=== PATIENT | female | born 1985 | race American Indian/Alaskan Native ===

== ENCOUNTER 2018-08-30 06:37 | Emergency (ER) | payer SELFPAY ==
[2018-08-30 07:02] LABS: Basophils % (Auto) 0.6 % (0.0-1.8); Eosinophils % (Auto) 0.7 % (0.0-4.3); Hematocrit 42.6 % (30.3-42.9); Hemoglobin 14.7 gm/dl (10.1-14.3); Lymphocytes # (Auto) 1.4 K/mm3 (1.2-5.4); Lymphocytes % (Auto) 28.8 % (13.4-35.0); Mean Corpuscular HGB Conc 35 % (30-34); Mean Corpuscular Volume 90 fl (79-97); Monocytes # (Auto) 0.8 K/mm3 (0.0-0.8); Monocytes % (Auto) 15.9 % (0.0-7.3); Platelet Count 197 K/mm3 (140-440); Red Blood Count 4.76 M/mm3 (3.65-5.03)
[2018-08-30 07:20] LABS: Bacteria,Urine 1+ /HPF (Negative); Bilirubin,Urine NEG (Negative); Blood,Urine MOD (Negative); Color,Urine Amber (Yellow); Mucus,Urine 3+ /HPF; Urobilinogen,Urine < 2.0 mg/dL (<2.0)
[2018-08-30 07:20] LABS: Alanine Aminotransferase 24 units/L (7-56); Albumin 3.8 g/dL (3.9-5); BUN/Creatinine Ratio 6; Blood Urea Nitrogen 5 mg/dL (7-17); Calcium 8.9 mg/dL (8.4-10.2); Hemolysis Index 2
--- NOTE | 2018-08-30 08:22 | Emergency Department Report ---
ED General Adult HPI - General Chief complaint: Abdominal Pain Stated complaint: ABD PAIN/DIARRHEA Time Seen by Provider: 08/30/18 07:51 Source: patient Mode of arrival: Ambulatory Limitations: No Limitations - History of Present Illness Initial comments: This is a 32 year old female who states she's had diarrhea since yesterday. She states the last episode was 4 she came. She's had some crampy abdominal pain and some lower back pain. She denies fever or chills. She has not been vomiting. She states she needs a work excuse. She denies sick contacts or recent travel. She denies past medical history in general. She is not complaining of any acute pain at the time of my encounter. -: Gradual, hour(s) Location: back, abdomen Radiation: non-radiation Quality: aching Consistency: intermittent Improves with: none Worsens with: movement (back pain worse on movement) Associated Symptoms: denies other symptoms (except as above) - Related Data Previous Rx's Medication Instructions Recorded Last Taken Type Erythromycin [Erythromycin Ophth 0.5 inch OS QID #1 tube 04/08/13 Unknown Rx Oint] Amoxicillin [Trimox CAP] 500 mg PO BID #20 capsule 08/08/14 Unknown Rx Cetirizine HCl [ZyrTEC] 10 mg PO QDAY #30 capsule 08/08/14 Unknown Rx Fluticasone [Flonase] 1 spray NS QDAY #1 bottle 08/08/14 Unknown Rx Gentamicin 0.3% Ophth Soln 1 drops OP Q4H #1 bottle 08/08/14 Unknown Rx Ondansetron [Zofran Odt] 4 mg PO Q8HR PRN #7 tab.rapdis 08/30/18 Unknown Rx Sulfamethoxazole/Trimethoprim 1 each PO BID #10 tablet 08/30/18 Unknown Rx [Bactrim DS TAB] traMADol [Ultram 50 MG tab] 50 mg PO Q6HR PRN #7 tablet 08/30/18 Unknown Rx Allergies Allergy/AdvReac Type Severity Reaction Status Date / Time No Known Allergies Allergy Verified 08/08/14 14:25 ED Review of Systems ROS: Stated complaint: ABD PAIN/DIARRHEA Other details as noted in HPI Constitutional: denies: chills, fever Eyes: denies: eye pain, eye discharge, vision change ENT: denies: ear pain, throat pain Respiratory: denies: cough, shortness of breath, wheezing Cardiovascular: denies: chest pain, palpitations Endocrine: no symptoms reported Gastrointestinal: abdominal pain, diarrhea. denies: nausea Genitourinary: denies: urgency, dysuria, discharge Musculoskeletal: denies: back pain, joint swelling, arthralgia Skin: denies: rash, lesions Neurological: denies: headache, weakness, paresthesias Psychiatric: denies: anxiety, depression Hematological/Lymphatic: denies: easy bleeding, easy bruising ED Past Medical Hx - Past Medical History Previous Medical History?: Yes Hx Hypertension: Yes (GESTATIONAL) Additional medical history: ECZEMA - Surgical History Past Surgical History?: Yes Hx Cholecystectomy: Yes Additional Surgical History: TUBAL ligation, x 4, - Social History Smoking Status: Current Every Day Smoker Substance Use Type: Alcohol - Medications Home Medications: Home Medications Medication Instructions Recorded Confirmed Last Taken Type Erythromycin [Erythromycin Ophth 0.5 inch OS QID #1 tube 04/08/13 Unknown Rx Oint] Amoxicillin [Trimox CAP] 500 mg PO BID #20 capsule 08/08/14 Unknown Rx Cetirizine HCl [ZyrTEC] 10 mg PO QDAY #30 capsule 08/08/14 Unknown Rx Fluticasone [Flonase] 1 spray NS QDAY #1 bottle 08/08/14 Unknown Rx Gentamicin 0.3% Ophth Soln 1 drops OP Q4H #1 bottle 08/08/14 Unknown Rx Ondansetron [Zofran Odt] 4 mg PO Q8HR PRN #7 tab.rapdis 08/30/18 Unknown Rx Sulfamethoxazole/Trimethoprim 1 each PO BID #10 tablet 08/30/18 Unknown Rx [Bactrim DS TAB] traMADol [Ultram 50 MG tab] 50 mg PO Q6HR PRN #7 tablet 08/30/18 Unknown Rx ED Physical Exam - General Limitations: No Limitations General appearance: alert, in no apparent distress, other (amply hydrated) - Head Head exam: Present: atraumatic, normocephalic - Eye Eye exam: Present: normal appearance. Absent: scleral icterus - ENT ENT exam: Present: mucous membranes moist - Neck Neck exam: Present: normal inspection. Absent: tenderness, meningismus - Respiratory Respiratory exam: Present: normal lung sounds bilaterally. Absent: respiratory distress - Cardiovascular Cardiovascular Exam: Present: regular rate, normal rhythm. Absent: systolic murmur, diastolic murmur, rubs, gallop - GI/Abdominal GI/Abdominal exam: Present: soft, normal bowel sounds. Absent: distended, tenderness, guarding, rebound, rigid - Extremities Exam Extremities exam: Present: normal inspection. Absent: calf tenderness - Back Exam Back exam: Present: normal inspection. Absent: CVA tenderness (R), CVA tenderness (L), muscle spasm, paraspinal tenderness, vertebral tenderness - Neurological Exam Neurological exam: Present: alert, oriented X3, CN II-XII intact. Absent: motor sensory deficit - Psychiatric Psychiatric exam: Present: normal affect, normal mood - Skin Skin exam: Present: warm, dry, intact, normal color. Absent: rash ED Course Vital Signs 08/30/18 06:45 Temperature 97.6 F Pulse Rate 101 H Respiratory 18 Rate Blood Pressure 121/87 O2 Sat by Pulse 99 Oximetry - Reevaluation(s) Reevaluation #1: Patient requests a work excuse. She is appropriate for oral hydration. I'm going to give her Bactrim as she does have increased leuko-Estrace and her urine. We will give her an analgesia. She'll be referred to the primary care setting for follow-up and further evaluation as needed. 08/30/18 08:24 ED Medical Decision Making - Lab Data Result diagrams: 08/30/18 06:52 08/30/18 06:52 Laboratory Results - last 24 hr 08/30/18 08/30/18 08/30/18 06:50 06:52 06:52 WBC 4.9 RBC 4.76 Hgb 14.7 H Hct 42.6 MCV 90 MCH 31 MCHC 35 H RDW 15.0 Plt Count 197 Lymph % (Auto) 28.8 [place] % (Auto) 15.9 H Eos % (Auto) 0.7 Baso % (Auto) 0.6 Lymph # 1.4 [place] # 0.8 Eos # 0.0 Baso # 0.0 Seg Neutrophils % 54.0 Seg Neutrophils # 2.7 Sodium 138 Potassium 3.9 Chloride 99.9 Carbon Dioxide 25 Anion Gap 17 BUN 5 L Creatinine 0.9 Estimated GFR > 60 BUN/Creatinine Ratio 6 Glucose 107 H Calcium 8.9 Total Bilirubin 0.30 AST 19 ALT 24 Alkaline Phosphatase 83 Total Protein 7.5 Albumin 3.8 L Albumin/Globulin Ratio 1.0 Urine Color [place] Urine Turbidity Cloudy Urine pH 6.0 Ur Specific [place] 1.023 Urine Protein 30 mg/dl Urine Glucose (UA) Neg Urine Ketones Neg Urine Blood Mod Urine Nitrite Neg Urine Bilirubin Neg Urine Urobilinogen < 2.0 Ur Leukocyte Esterase Neg Urine WBC (Auto) 6.0 Urine RBC (Auto) 2.0 U Epithel Cells (Auto) 37.0 H Urine Bacteria (Auto) 1+ Urine Mucus 3+ Critical care attestation.: If time is entered above; I have spent that time in minutes in the direct care of this critically ill patient, excluding procedure time. ED Disposition Clinical Impression: Gastroenteritis Disposition: [id number]-01 TO HOME OR SELFCARE Is pt being admited?: No Does the pt Need Aspirin: No Condition: Stable Instructions: Abdominal Pain (ED), Gastroenteritis (ED) Additional Instructions: Increase fluids. Medications as directed. Return as needed any acute change or worsening symptoms. Follow up with primary care clinic. Prescriptions: Sulfamethoxazole/Trimethoprim [Bactrim DS TAB] 1 each PO BID #10 tablet traMADol [Ultram 50 MG tab] 50 mg PO Q6HR PRN #7 tablet PRN Reason: Pain Ondansetron [Zofran Odt] 4 mg PO Q8HR PRN #7 tab.rapdis PRN Reason: Nausea Referrals: STEPHANIA MARRERO MD [Primary Care Provider] - 2-3 Days Forms: Work/School Release Form(ED) Time of Disposition: 08:26
[2018-08-30] MEDS ORDERED: ULTRAM PO ONE (08:29)
[2018-08-30] MEDS ORDERED: ZOFRAN ODT PO ONE (08:29)
[2018-08-30 09:44] VITALS: BP 108/73
== END 2018-08-30 10:00 | disposition home or self-care (01) ==
LOC: ED 06:37
DX: K52.9 Noninfective gastroenteritis and colitis, unspecified (principal); I10 Essential (primary) hypertension; F17.200 Nicotine dependence, unspecified, uncomplicated; Z98.51 Tubal ligation status; Z90.49 Acquired absence of other specified parts of digestive tract
CPT/HCPCS: 36415; 80053; 81001; 85025; Q0162